=== PATIENT | male | born 1965 | race Caucasian/White ===

== ENCOUNTER 2017-01-18 11:43 | Emergency (ER) | payer MEDICAID, OTHER ==
[~2017-01-18] VITALS: Ht 188 cm; Wt 100.5 kg
[2017-01-18 12:05] VITALS: BP 136/79; PULSE 56; RESP 24; O2SAT 98
--- NOTE | 2017-01-18 13:37 | ED.REPORT ---
HPI-Headache Date of Service Jan 18, 2017 ED Provider: Juan F Duncan MD Pt is a 51 y.o. male with a hx of MS who presents to the ED c/o severe headache described as pressure radiating to his neck onset 5 days ago. Pt reports associated nausea, vomiting, fever (subjective), diaphoresis, fatigue, and decreased PO intake. Pt states that he was recently started on Baclofen, but discontinued use as he thought it might be causing his headache. Pt's friend who accompanies him states that his gait has gotten worse since he last saw him 2 months ago. Pt denies bladder/rectal incontinence. Pt is being followed by Dr. Annie Cruz (neurology) and Neurology. Nursing Notes Stated Complaint: HEAD PRESSURE THROWING UP Chief Complaint: Headache Nursing Notes Reviewed: Yes Allergies: Coded Allergies: No Known Allergies (Unverified , 01/18/17) General Time Seen by MD: 13:36 Chief Complaint Headache Hx Obtained From: Patient Arrived By: Walk-in Sudden in Onset?: Yes Onset Occurred: 5 days ago Context of Onset: New medication Symptom Duration: Since onset Location: : Generalized Quality: Painful Radiation: : Neck, posterior Severity: Current: Severe Past Medical History Past Medical History Notes: Neurologist: Dr. Annie Cruz Followed by Neurology Past Medical History MS Past Surgical History Left ankle Smoking History Current Every Day Smoker Social History Alcohol Use: In recovery Drug Use: THC Ambulatory Status Independent Review of Systems Decreased PO intake Constitutional: Reports: Fatigue, Fever (Subjective) GI: Reports: Nausea, Vomiting Musculoskeletal: Reports: Neck pain Skin: Reports Diaphoresis Neurologic: Reports: Headache, Problem walking, Denies: Bladder dysfunction, Bowel dysfunction Complete sys rev & neg: except as marked. Male: Denies Incontinence Physical Exam Initial Vital Signs Vital Signs (First) Date Time Temp Pulse Resp B/P Pulse Ox O2 Delivery O2 Flow Rate FiO2 01/18/17 12:05 36.7 56 24 136/79 98 Room Air Initial VS: Reviewed Respiratory: Breath sounds normal, No respiratory distress Cardiovascular: Regular rate & rhythm, Intact distal pulses Abdomen / GI: No distention Extremities: Vascular intact, Neuro intact Skin: Warm, Dry, No cyanosis Psychiatric: Mood/affect normal, Behavior normal, Normal thought content General/Constitutional: Awake, Alert, No acute distress, Well appearing, Well developed, Well hydrated, Well nourished, Not toxic appearing Head / Eyes: Atraumatic, Normocephalic, PERRL Neck: Atraumatic Neurologic: Oriented X3, Speech NL Focal Weakness: Negative: Pronator drift L, Pronator drift R Gait Abnormality: Positive: Antalgic gait Abnormal gait due to MS Bilateral lower extremity strength intact. Re-Eval/Medical Decision Source of Hx: Old records Re-Evaluation/Progress : Time of Eval: 14:48 Re-Evaluation/Progress Note: Pt rechecked. He states his pain is improved. Discussed plan for discharge, pt understands and agrees with plan. Counseled Regarding: Diagnosis, Lab results, Need for follow-up, When/why to return to ED Discharge & Departure Impression: Primary Impression: Headache Headache type: unspecified Headache chronicity pattern: acute headache Intractability: not intractable Qualified Code: R51 - Headache Disposition: Home Discharge Condition All VS Reviewed: Yes Condition: Improved Patient Instructions: Acute Headache (ED) Additional Instructions: Thank you for entrusting us with your care today. I believe your headache may be due to an MS exacerbation. I recommend you follow-up with Dr. Annie Cruz regarding your visit here today, call Saturday to schedule an appointment. Please seek care if you begin to experience focal weakness, inability to walk, slurred speech, facial or extremity numbness, or any new or worsening symptoms. Referrals: Annie Cruz MD (PCP) Scribe Attestation Portions of this note were transcribed by Yesi Barnes. I, Dr. Duncan personally performed the history, physical exam and medical decision-making; I reviewed and confirmed the accuracy of the information in the transcribed note. Signed by: Rafa Bernstein, 01/18/17 and 1449. copies to: Annie Cruz MD, Kirk H MD Jan 18, 2017 13:37 YESI BARNES Jan 18, 2017 13:45
[2017-01-18] MEDS ORDERED: 0.9% Sodium Chloride 1,000 ML IV ONE (13:43)
[2017-01-18] MEDS ORDERED: MetoCLOpramide 5 mg/mL 2 mL Inj IVPUSH ONE (13:45)
[2017-01-18] MEDS ORDERED: Dexamethasone 10 mg/mL Inj IVPUSH ONE (13:45)
[2017-01-18] MEDS ORDERED: Acetaminophen IV 1,000 MG in IV Premix 1 EACH IV ONE (13:45)
[2017-01-18 15:24] VITALS: BP 103/74; PULSE 55; O2SAT 100
== END 2017-01-18 15:23 | disposition home or self-care (01) ==
LOC: SED 11:43
DX: R51 Headache (principal); F17.200 Nicotine dependence, unspecified, uncomplicated
CPT/HCPCS: 96361; 96374; 96375; 99284; J1100; J1200; J1885; J2765; J7030